=== PATIENT | male | born 1970 | race Caucasian/White ===

== ENCOUNTER 2020-10-06 19:53 | Emergency (ER) | payer BC, SELFPAY ==
[2020-10-06 19:54] VITALS: BP 137/82; PULSE 105; RESP 18; TEMP 36.8; O2SAT 100
[2020-10-06 20:03] VITALS: BP 137/82; PULSE 100; RESP 18; TEMP 36.8; O2SAT 100
--- NOTE | 2020-10-06 20:06 | PC.NURSE ---
Pt presents to ED with complaint of persistent emesis after choking on a spoonful of rice. Pt states he feels like the food became lodged at the top of his esophagus and states when he drink anything it comes back up as if it is blocked. Breathing noted to be even and unlabored with O2 saturation of 100% on room air. Pt able to speak in full sentences without difficulty. Pt noted with persistent cough and heaving. Pt alert and oriented x4. Nausea and emesis frequency has decreased since arrival. Girlfriend it present at bedside. Vitals are stable and pt in no obvious distress. Call button and personal items within reach. Pt advised to press call button for assistance.
[2020-10-06] MEDS: NITROGLYCERIN SL 0.4 MG TABLET SUBLINGUAL (20:47)
[2020-10-06] MEDS: SODIUM CHLORIDE 0.9% IV 1,000 ML 999 ML IV CONT (20:47)
--- NOTE | 2020-10-06 20:54 | ED.GENADULT ---
HPI - General Adult General Chief complaint: Nausea/Vomiting/Diarrhea Stated complaint: food stuck in throat Time Seen by Provider: 10/06/20 20:09 History of Present Illness HPI narrative: Patient 49-year-old gentleman who presents the emergency department with chief complaint of esophageal food impaction. Patient reports that he was eating Amharic food and had a big diet bite of rice as he swallowed it got stuck in his esophagus. The patient reports has been unable to swallow since then and unable to swallow his own secretions. Patient reports as the secretions build up he then has to spit up with his oral secretions. The patient reports he had an episode occurred like this before in the past but he was able to clear the impaction. Related Data Allergies Allergy/AdvReac Type Severity Reaction Status Date / Time No Known Allergies Allergy Unverified 06/09/20 10:59 Review of Systems Review of Systems: Narrative: A 10 system review of systems was completed on the patient and is negative except for what is stated in the HPI. Nursing and ancillary documentation was reviewed. [facility] Past Medical History Medical History Chicken pox Chills Flatulence Headaches, cluster Stomach pain Family History Family History Father , 70 Lorena Gehrig disease Mother No problems noted. Social History Social History Social History: patient drinks 1 32 ounce soda per day Smoking status: Never smoker Alcohol intake: never Substance use: never Substance use type: does not use Additional occupation/education comments: [employer] Gender identity (if verbalized by the patient): Male Spiritual care concerns: No Exam Narrative: Exam Narrative: GENERAL: Well-appearing, well-nourished, and in no acute distress. HEAD: Normocephalic, atraumatic. EYES: PERRLA and EOMI. ENT: Nares clear, no rhinorrhea or epistaxis. Mucous membranes moist. NECK: Supple. CHEST: Clear to auscultation. No respiratory distress. HEART: Regular rate and rhythm. No murmur heard. Normal peripheral pulses. ABDOMEN: Soft, nontender, nondistended, normal active bowel sounds. EXTREMITIES: Normal range of motion. No edema. SKIN: Warm, dry, no rash. NEURO: No focal deficits. Alert and oriented x3. PSYCH: Normal mood and affect. Course Vital Signs Vital signs: Vital Signs Temperature 36.8 C 10/06/20 19:54 Pulse Rate 105 H 10/06/20 19:54 Respiratory Rate 18 10/06/20 19:54 Blood Pressure 137/82 10/06/20 19:54 Pulse Oximetry 100 10/06/20 19:54 Temperature 36.8 C 10/06/20 20:03 Pulse Rate 100 10/06/20 20:03 Respiratory Rate 18 10/06/20 20:03 Blood Pressure 137/82 10/06/20 20:03 Pulse Oximetry 100 10/06/20 20:03 Medical Decision Making Vital Signs Vital Signs: Vital Signs Temperature 36.8 C 10/06/20 19:54 Pulse Rate 105 H 10/06/20 19:54 Respiratory Rate 18 10/06/20 19:54 Blood Pressure 137/82 10/06/20 19:54 Pulse Oximetry 100 10/06/20 19:54 Temperature 36.8 C 10/06/20 20:03 Pulse Rate 100 10/06/20 20:03 Respiratory Rate 18 10/06/20 20:03 Blood Pressure 137/82 10/06/20 20:03 Pulse Oximetry 100 10/06/20 20:03 Lab Data Result diagrams: 10/06/20 20:52 10/06/20 20:52 Labs: Lab Results 10/06/20 10/06/20 10/06/20 Range/Units 20:52 20:52 21:14 WBC 8.9 (4.5-10.0) K/mm3 RBC 4.99 (4.6-6.20) M/mm3 Hgb 15.1 (14.0-18.0) g/dL Hct 43.2 (42.0-52.0) % MCV 86.6 (80-100) fl MCH 30.3 (26-34) pg MCHC 35.0 (32-36) g/dl RDW 12.7 (11.5-14.5) % Plt Count 234 (150-375) k/mm3 MPV 10.0 (7.4-10.4) fl Immature Gran % (Auto) 0.2 (0-0.5) % Neut % (Auto) 65.9 (45.5-73.1) % Lymp
[2020-10-06 20:57] LABS: Basophils Absolute Auto 0.1 K/mm3 (0.0-0.1); Basophils Percent Auto 0.7 % (0.2-1.2); Eosinophils Absolute Auto 0.2 K/mm3 (0-0.3); Hematocrit 43.2 % (42.0-52.0); Hemoglobin 15.1 g/dL (14.0-18.0); Immature Granulocyte Absolute 0.02 K/mm3 (0.00-0.031); Immature Granulocyte Percent A 0.2 % (0-0.5); Lymphocytes Absolute Auto 1.93 K/mm3 (0.9-3.2); Lymphocytes Percent Auto 21.7 % (18.3-44.2); Mean Corpuscular Hemoglobin 30.3 pg (26-34); Mean Corpuscular Volume 86.6 fl (80-100); Monocytes Absolute Auto 0.9 K/mm3 (0.1-0.6); Monocytes Percent Auto 9.5 % (2.6-8.5); Neutrophils Absolute Auto 5.9 K/mm3 (1.3-6.7); Neutrophils Percent Auto 65.9 % (45.5-73.1); Platelet Count Result 234 k/mm3 (150-375); Red Blood Count 4.99 M/mm3 (4.6-6.20); Red Cell Distribution Width 12.7 % (11.5-14.5); White Blood Count 8.9 K/mm3 (4.5-10.0)
[2020-10-06 21:07] LABS: Alanine Aminotransferase 25 U/L (4-50); Albumin Level 4.5 g/dL (3.5-5.1); Alkaline Phosphatase 77 U/L (38-126); Anion Gap 11 mmol/L (8-16); Aspartate Amino Transferase 29 U/L (17-59); Bilirubin,Total 0.6 mg/dL (0.2-1.3); Blood Urea Nitrogen 19 mg/dL (9-20); Calcium 9.1 mg/dL (8.4-10.2); Carbon Dioxide 19 mmol/L (22-30); Chloride 108 mmol/L (98-107); Estimated CRCL calculation 64 ml/min; Estimated Glomerular Filt Rate 54; Glucose 129 mg/dL (75-110); Potassium 3.5 mmol/L (3.4-5.0); Sodium 138 mmol/L (137-145)
[2020-10-06] MEDS: GLUCAGON FOR INJ 1 MG VIAL 2 MG IV PUSH (21:16)
--- NOTE | 2020-10-06 21:18 | PC.NURSE ---
Pt states he feels better since medication administration and now rates discomfort 2/10 at this time. Pt remains alert and oriented x4 and in no obvious distress. Family member remains at bedside. Vitals are stable and pt advised to press call button for assistance.
[2020-10-06 21:22] LABS: Glucose Point of Care 122 (65-105)
--- NOTE | 2020-10-06 22:01 | PC.NURSE ---
EDMD at bedside to update pt and family on poc. Pt states he feels better and denies pain and discomfort. Call button and personal items within reach. Pt advised to press call button for assistance.
[2020-10-06 22:12] VITALS: BP 111/67; PULSE 57; RESP 18; TEMP 36.8; O2SAT 97
--- NOTE | 2020-10-20 15:41 | PC.NURSE ---
LATE ENTRY This note is being entered to document information to the patient's record. The following information was omitted on [10/06/20], by [Annette Shell]. Ns stopped at 2100
== END 2020-10-06 22:15 | disposition home or self-care (01) ==
PROVIDERS: Emergency Provider Emergency Medicine; PCP Emergency Medicine
DX: T18.128A Food in esophagus causing other injury, initial encounter (principal)
CPT/HCPCS: 36415; 80053; 82948; 85025; 96374; 99284; A9270; J1610; J7030

== ENCOUNTER → 2020-10-28 01:41 | Outpatient (CLI) | payer BC, SELFPAY ==
[2020-10-29 14:53] LABS: SARS-CoV-2 RNA PCR Negative
== END ==
PROVIDERS: PCP Emergency Medicine; Visit Provider Internal Medicine Gastroenterology
DX: Z01.812 Encounter for preprocedural laboratory examination (principal); Z20.822 Contact with and (suspected) exposure to COVID-19
CPT/HCPCS: C9803; U0003; U0005

== ENCOUNTER 2020-10-31 01:53 | Day surgery (SDC) | payer BC, SELFPAY ==
[2020-07-07 13:25] VITALS: BMI 28.7
[2020-10-26 12:25] VITALS: BMI 28.7
[2020-10-31 08:12] VITALS: BP 113/73; PULSE 52; RESP 18; TEMP 36.2; O2SAT 98; BMI 26.9
[2020-10-31] MEDS: LACTATED RINGERS 1,000 ML 150 ML IV CONT (08:24)
--- NOTE | 2020-10-31 08:33 | WPDANESEPPF ---
Anes - Initial Pre Proc Eval Procedure: Operation Date: 10/31/20 09:15 Proposed Procedures p Esophagogastroduodenoscopy & Colonoscopy - Peter Wan MD Date/Time: 10/31/20 08:33 Surgeon: Peter Wan MD Pre Op Diagnosis: Positive Cologard, Dysphagia Patient Data Age: 50 Gender: M Height: 1.83 m Weight: 90.1 kg Last Vital Signs Temp 36.2 C L 10/31/20 08:12 Pulse 52 L 10/31/20 08:12 Resp 18 10/31/20 08:12 BP 113/73 10/31/20 08:12 Pulse Ox 98 10/31/20 08:12 Allergies Allergy/AdvReac Type Severity Reaction Status Date / Time No Known Allergies Allergy Verified 10/31/20 08:10 Home Medications Medication Instructions Recorded Confirmed Type finasteride 5 mg tablet See Rx Instructions PO DAILY #45 09/04/20 10/31/20 Rx tablet finasteride 2.5 mg PO DAILY 10/26/20 10/31/20 History Patient hx anesthesia problems: none Family hx anesthesia problems: none PMFSH Past Medical History Medical History Chicken pox Chills Flatulence Headaches, cluster Stomach pain Family History Family History Father , 70 Lorena Gehrig disease Mother No problems noted. Social History Social History Social History: patient drinks 1 32 ounce soda per day Smoking status: Never smoker Alcohol intake: current Alcohol use details: 2 PER MONTH Substance use: never Substance use type: does not use Living arrangements: with family Additional occupation/education comments: [employer] Gender identity (if verbalized by the patient): Male Spiritual care concerns: No Anes - Eval Final PreProcedure Day of Procedure 10/31/20 08:33 Patient weight: overweight Heart: regular rate and rhythm Lungs: clear to auscultation and normal air movement Airway: Mallampati scale class II Neurological: alert and oriented Last oral intake: >/= 8 hours ASA classification: II Emergent: no Anesthetic plan: proceed Anesthesia type and monitoring: general GIVS and standard monitoring Informed Consent: The patient's anesthetic plan and its attendant risks and benefits were discussed with the patient/family/POA. Questions were solicited and answers provided to the satisfaction of the patient/family/POA.
--- NOTE | 2020-10-31 08:54 | PM.HPGS ---
History of Present Illness History of Present Illness Consent: Risks, benefits, and alternatives have been discussed and questions answered. Patient agrees to proceed with procedure. Chief complaint: Positive Cologard, Dysphagia Narrative: Turner Orr is a 50 year old male had one episode of food bolus after eating faroese rice treated medically and did not require egd, also had + cologuard (never had scopes) Review of Systems Constitutional: Constitutional: Denies headache(s) and Denies weakness Eyes: Eyes: Denies blurry vision ENT: Reports Normal hearing present, Denies headache(s) and Denies neck pain Cardiovascular: Cardiovascular: Denies chest pain and Denies dyspnea Respiratory: Respiratory: Denies dyspnea Gastrointestinal: Gastrointestinal: Reports no additional gastrointestinal complaints Genitourinary: Genitourinary: Denies dysuria Musculoskeletal: Musculoskeletal: Denies neck pain Integumentary/Breasts: Skin/Breast: Denies dry skin Neurologic: Reports Normal hearing present, Denies headache(s) and Denies weakness Psychiatric: Psychiatric: Denies anxiety Endocrine: Endocrine: Denies change in body appearance Hematologic/Lymphatic: Hematologic/Lymphatic: Denies easy bleeding Allergic/Immunologic: Allergic/Immunologic: Denies urticaria PMFSH Past Medical History Medical History (Updated 10/31/20 @ 08:55 by Peter Wan MD) Chicken pox Chills Flatulence Food impaction of esophagus Headaches, cluster Positive colorectal cancer screening using Cologuard test Stomach pain Family History Family History Father , 70 Lorena Gehrig disease Mother No problems noted. Social History Social History Social History: patient drinks 1 32 ounce soda per day Smoking status: Never smoker Alcohol intake: current Alcohol use details: 2 PER MONTH Substance use: never Substance use type: does not use Living arrangements: with family Additional occupation/education comments: [employer] Gender identity (if verbalized by the patient): Male Spiritual care concerns: No Meds Home Medications and Allergies Home Medications Medication Instructions Recorded Confirmed Type finasteride 5 mg tablet See Rx Instructions PO DAILY #45 09/04/20 10/31/20 Rx tablet finasteride 2.5 mg PO DAILY 10/26/20 10/31/20 History Allergies Allergy/AdvReac Type Severity Reaction Status Date / Time No Known Allergies Allergy Verified 10/31/20 08:10 Vital Signs Vital Signs - 24 hr 10/31/20 08:12 Temperature 97.1 F L Pulse Rate 52 L Respiratory Rate 18 Blood Pressure 113/73 Pulse Oximetry 98 Exam Const: General: comfortable and no acute distress HENMT: General nose exam: Normal nares present Eyes: General: appearance normal, both eyes and all related structures Neck: Neck: no JVD Resp: Auscultation: clear to auscultation bilaterally Cardio: Rate: regular rate Rhythm: regular rhythm GI: Inspection: non-distended GI Palp: Yes Soft to palpation Skin: General skin exam: normal color Neuro: General: gait normal Speech: normal speech Extrem: General: normal to inspection Psych: Mental Status: mental status grossly normal Assessment and Plan Assessment and plan (1) Food impaction of esophagus: Code(s): T18.128A - Food in esophagus causing other injury, initial encounter Status: Acute Assessment and Plan: egd with bx (2) Positive colorectal cancer screening using Cologuard test: Code(s): R19.5 - Other fecal abnormalities Status: Acute Assessment and Plan: colonoscopy
--- NOTE | 2020-10-31 09:11 | SUR.OPER ---
EGD ENDED 901 AND COLONOSCOPY STARTED
[2020-10-31 09:18] VITALS: BP 96/62; PULSE 86; RESP 16; O2SAT 97
[2020-10-31 09:28] VITALS: BP 91/44; PULSE 74; RESP 22; O2SAT 95
[2020-10-31 09:38] VITALS: BP 107/57; PULSE 78; RESP 17; O2SAT 99
== END 2020-10-31 10:16 | disposition home or self-care (01) ==
PROVIDERS: PCP Emergency Medicine; Visit Provider Internal Medicine Gastroenterology
PROC: 0DJ08ZZ Inspection of Upper Intestinal Tract, Via Natural or Artificial Opening Endoscopic (ICD-10-PCS; CPT 43235; principal; 2020-10-31 09:15)
DX: R19.5 Other fecal abnormalities (principal); D12.3 Benign neoplasm of transverse colon; K57.30 Diverticulosis of large intestine without perforation or abscess without bleeding; K64.8 Other hemorrhoids; K29.50 Unspecified chronic gastritis without bleeding; K20.80 Other esophagitis without bleeding; E66.3 Overweight; Z68.26 Body mass index [BMI] 26.0-26.9, adult
CPT/HCPCS: 45385; 43239; 88305; J7120

== ENCOUNTER 2020-12-11 12:02 | Outpatient (CLI) | payer BC, SELFPAY ==
[2020-12-11 12:49] LABS: Chloride 106 mmol/L (98-107)
[2020-12-11 12:52] LABS: Hemoglobin A1C 5.3 % (<5.7)
[2020-12-11 12:59] LABS: Alanine Aminotransferase 18 U/L (4-50); Albumin Level 4.1 g/dL (3.5-5.1); Alkaline Phosphatase 66 U/L (38-126); Anion Gap 6 mmol/L (8-16); Aspartate Amino Transferase 26 U/L (17-59); Bilirubin,Total 0.6 mg/dL (0.2-1.3); Blood Urea Nitrogen 14 mg/dL (9-20); Calcium 9.2 mg/dL (8.4-10.2); Carbon Dioxide 27 mmol/L (22-30); Estimated Glomerular Filt Rate 38; Glucose 97 mg/dL (75-110); Potassium 4.4 mmol/L (3.4-5.0); Sodium 139 mmol/L (137-145)
== END 2020-12-11 12:03 | disposition home or self-care (01) ==
LOC: ANHLAB 12:05
PROVIDERS: PCP Emergency Medicine; Visit Provider Emergency Medicine
DX: E78.00 Pure hypercholesterolemia, unspecified (principal); R73.09 Other abnormal glucose
CPT/HCPCS: 36415; 80053; 83036

== ENCOUNTER 2021-02-19 09:41 | Outpatient (CLI) | payer BC, SELFPAY ==
[2021-02-19 10:14] LABS: Albumin Level 4.3 g/dL (3.5-5.1); Anion Gap 9 mmol/L (8-16); Blood Urea Nitrogen 14 mg/dL (9-20); Calcium 9.2 mg/dL (8.4-10.2); Carbon Dioxide 25 mmol/L (22-30); Chloride 102 mmol/L (98-107); Estimated Glomerular Filt Rate 59; Glucose 110 mg/dL (65-110); Potassium 3.8 mmol/L (3.4-5.0); Sodium 136 mmol/L (137-145)
[2021-02-19 12:17] LABS: Collection Time Urine 24 HOURS
[2021-02-19 12:24] LABS: Creatinine Urine 167.3 mg/dL; Patient Weight 200 Lbs
[2021-02-19 13:05] LABS: Total Volume 24 Hour Urine 1400 ml
[2021-02-19 13:06] LABS: Creatinine Clearance Urine 617.7 ml/min (75-125)
== END 2021-02-19 09:42 | disposition home or self-care (01) ==
PROVIDERS: PCP Emergency Medicine; Visit Provider Internal Medicine Nephrology
DX: R79.89 Other specified abnormal findings of blood chemistry (principal)
CPT/HCPCS: 36415; 80069; 82575

== ENCOUNTER 2021-02-27 10:12 | Outpatient (CLI) | payer BC, SELFPAY ==
--- NOTE | ~2021-02-27 | US_ITS ---
EXAMINATION: US renal BI DATE: 02/27/2021 10:47 INDICATION: Elevated creatinine TECHNIQUE: Multiple grayscale and Doppler ultrasound images of the kidneys were obtained. COMPARISON: None. FINDINGS: The right kidney measures 11.5 x 5.2 x 6.5 cm. The left kidney measures 10.6 x 6.7 x 5.5 cm . The kidneys demonstrate normal parenchymal echogenicity. There is no hydronephrosis. The bladder is normal. IMPRESSION: 1. Normal kidneys without hydronephrosis. Reviewed, dictated and finalized at location B.
== END 2021-02-27 10:13 | disposition home or self-care (01) ==
LOC: ANHIMG 10:17
PROVIDERS: PCP Emergency Medicine; Visit Provider Internal Medicine Nephrology
DX: R79.89 Other specified abnormal findings of blood chemistry (principal)
CPT/HCPCS: 76775

== ENCOUNTER 2022-06-21 15:05 | Emergency (ER) | payer BC, SELFPAY ==
[2022-06-21 15:10] VITALS: BP 138/91; PULSE 65; RESP 20; TEMP 36.6; O2SAT 98
--- NOTE | 2022-06-21 15:29 | ED.URI ---
HPI - URI/Sore Throat General Chief Complaint: Upper Respiratory Infection Stated Complaint: Sore Throat, Fever, Cough Time Seen by Provider: 06/21/22 15:29 Source: patient Mode of arrival: ambulatory Limitations: no limitations History of Present Illness HPI Narrative: 51-year-old male presents with complaint flu-like symptoms over a week. Reports that he now has sinus congestion that will not go away. Taking [id number] medications without relief. Denies nausea vomiting diarrhea. reports that he initially had a fever for 2-3 days but that has resolved. Continues to have cough, pain to right lung when coughing. Denies shortness of breath or chest pain. All systems reviewed and negative except as noted above. Related Data Allergies Allergy/AdvReac Type Severity Reaction Status Date / Time No Known Allergies Allergy Verified 06/21/22 15:06 Review of Systems Review of Systems: CONSTITUTIONAL: Denies fever, chills, or sweats. Reports fatigue. EYES: Denies visual changes, redness, or discharge. ENT: Reports rhinorrhea, congestion, sinus congestion. Denies sore throat, or otalgia. CARDIOVASCULAR: Denies chest pain, palpitations, or edema. RESPIRATORY: reports cough. Denies dyspnea. GASTROINTESTINAL: Denies abdominal pain, nausea, vomiting, or diarrhea. GENITOURINARY: Denies dysuria or hematuria. SKIN: Denies rash or itching. MUSCULOSKELETAL: Denies back pain, joint pain, or myalgia. NEUROLOGIC: Denies headache, numbness, or weakness. PSYCHIATRIC: Denies anxiety or depression. All other systems reviewed are negative, except as documented in HPI. [facility] Past Medical History Medical History Adenomatous colon polyp Chicken pox Chills Eosinophilic esophagitis Flatulence Food impaction of esophagus GERD (gastroesophageal reflux disease) Headaches, cluster Positive colorectal cancer screening using Cologuard test Stomach pain Family History Family History Father , 70 Lorena Gehrig disease Mother No problems noted. Social History Social History Social History: patient drinks 1 32 ounce soda per day Smoking status: Never smoker Alcohol intake: current Alcohol use details: 2 PER MONTH Substance use: never Substance use type: does not use Additional occupation/education comments: [employer] Gender identity (if verbalized by the patient): Male Spiritual care concerns: No Comments At time of signature, agree with nursing past medical, surgical, social and family history. There is no relevant family history pertinent to the presenting complaint. Exam Narrative: GENERAL: This is a well-nourished, well-developed patient, in no apparent distress. HEAD: normocephalic, atraumatic. EYES: PERRL. Sclera clear/white. Vision is grossly intact. EARS: External ears normal, auditory canals clear and without drainage, fluid bilateral TM without perforation. NOSE: External nose normal with Thick drainage from nose, moderate congestion, bilateral maxillary sinus tenderness. Erythema and swelling to both nares. THROAT: Mucous membranes moist, Erythema with postnasal drainage. NECK: Neck supple, non-tender without lymphadenopathy, masses or thyromegaly. CARDIOVASCULAR: Regular rate and rhythm without murmurs, gallops, or rubs. RESPIRATORY: Clear to auscultation. Breath sounds equal bilaterally. No wheezes, rales, or rhonchi. SKIN: warm, Dry, intact with no suspicious lesions or rash, good texture and turgor. NEURO: awake, alert, and oriented to person, place and time. There were no obvious focal neurologic abnormalities. EXTREMITIES: No joint tenderness, effusion, or edema noted. Course Course Level of Care: Express Care Visit Vital Signs Vital signs: Vital Signs Temperature 36.6 C 06/21/22 15:
== END 2022-06-21 15:43 | disposition home or self-care (01) ==
PROVIDERS: Emergency Provider Nurse Practitioner Family; PCP Emergency Medicine
DX: J01.90 Acute sinusitis, unspecified (principal); K21.9 Gastro-esophageal reflux disease without esophagitis
CPT/HCPCS: 99213; G0463

== ENCOUNTER 2022-07-18 17:46 | Emergency (ER) | payer OTHER, SELFPAY ==
[2022-07-18 18:08] VITALS: BP 130/91; PULSE 60; RESP 18; TEMP 36.4; O2SAT 100
--- NOTE | 2022-07-18 18:50 | ED.URI ---
HPI - URI/Sore Throat General Chief Complaint: Upper Respiratory Infection Stated Complaint: Ear/Nose/ Throat Time Seen by Provider: 07/18/22 18:47 Source: patient and RN notes reviewed Mode of arrival: ambulatory Limitations: no limitations History of Present Illness HPI Narrative: 51-year-old male presents with concern for ongoing sinus infection despite antibiotics. Reports at the end of May he was treated for a sinus infection with amoxicillin and steroids. Reports symptoms started to improve but did not resolve and they have gradually worsened. He reports symptoms have worsened over the last week. MD elicited complaint: nasal congestion and sinus pain Related Data Allergies Allergy/AdvReac Type Severity Reaction Status Date / Time No Known Allergies Allergy Verified 07/18/22 18:07 Review of Systems Review of Systems: CONSTITUTIONAL: Denies malaise, chills, sweats, or fever. EYES: Denies visual changes, redness, or discharge. ENT: Reports rhinorrhea, congestion, sinus pain. Denies otalgia and sore throat. CARDIOVASCULAR: Denies chest pain, palpitations, or edema. RESPIRATORY: Denies cough. Denies dyspnea. GASTROINTESTINAL: Denies abdominal pain, nausea, vomiting, diarrhea SKIN: Denies rash or itching. MUSCULOSKELETAL: Denies myalgia. NEUROLOGIC: Reports headache. All systems reviewed & are unremarkable except as noted in HPI and below PMFSH Past Medical History Medical History Adenomatous colon polyp Chicken pox Chills Eosinophilic esophagitis Flatulence Food impaction of esophagus GERD (gastroesophageal reflux disease) Headaches, cluster Positive colorectal cancer screening using Cologuard test Stomach pain Family History Family History Father , 70 Lorena Gehrig disease Mother No problems noted. Social History Social History Social History: patient drinks 1 32 ounce soda per day Smoking status: Never smoker Alcohol intake: current Alcohol use details: 2 PER MONTH Substance use: never Substance use type: does not use Living arrangements: with family Occupation/Education: occupation Additional occupation/education comments: [employer] Gender identity (if verbalized by the patient): Male Spiritual care concerns: No Comments At time of signature, agree with nursing past medical, surgical, social and family history. There is no relevant family history pertinent to the presenting complaint Exam Narrative: GENERAL: Well-appearing, well-nourished, and in no acute distress. HEAD: Normocephalic EYES: PERRLA, conjunctivae clear ENT: Nares clear, turbinates edematous and erythematous, sinus tenderness. Mucous membranes moist. TM pearly lockett with dull light reflex bilaterally; no tragal tenderness. Oropharynx not erythematous without lesions. Tonsils not enlarged and without exudate, no drooling, no hoarseness, no trismus, uvula midline. NECK: Supple. No lymphadenopathy CHEST: Clear to auscultation, breath sounds equal. No wheezing, rhonchi, rales, or stridor. No respiratory distress, speaks in full sentences. HEART: Regular rate and rhythm. No murmur heard. SKIN: Warm, dry, no rash. NEURO: Alert and oriented x3. PSYCH: Normal mood and affect Course Course Emergency Course: Patient is aware of diagnosis, understands and agrees to treatment plan. Anticipatory guidance given. Patient agrees to follow-up as directed and is aware of reasons to seek care at the emergency department. Portions of this record may have been created with voice recognition software Level of Care: Express Care Visit Vital Signs Vital signs: Vital Signs Temperature 97.6 F 07/18/22 18:08 Pulse Rate 60 07/18/22 18:08 Respiratory Rate 18 07/18/22 18:08 Blood Pressure 130/91 H 07/18/22 18:08 Pulse
== END 2022-07-18 19:00 | disposition home or self-care (01) ==
PROVIDERS: Emergency Provider Nurse Practitioner; PCP Emergency Medicine
DX: J01.90 Acute sinusitis, unspecified (principal); K21.9 Gastro-esophageal reflux disease without esophagitis
CPT/HCPCS: 99213; G0463

== ENCOUNTER 2024-10-28 08:22 | Outpatient (CLI) | payer OTHER, SELFPAY ==
--- NOTE | ~2024-10-28 | XR_ITS ---
3 VIEWS LUMBAR SPINE Ordering provider: Parker Márquez MD History: . M54.9 - Dorsalgia, unspecified . Comparison: None. FINDINGS: VERTEBRAL BODIES:Dextroscoliosis. No visible fracture or subluxation. Degenerative changes of the sp ine. DISK SPACES: Slight narrowing of the disc L3-L4 and L4-L5. SOFT TISSUES: Normal. IMPRESSION: No acute osseous abnormality lumbar spine. Multilevel degenerative disc disease. Dextroscoliosis. Reviewed, dictated and finalized at location A.
--- NOTE | ~2024-10-28 | CT_ITS ---
Non-contrast CT scan of the Abdomen and Pelvis Clinical indication: Abdominal pain Technique: 2.5 mm axial scans were obtained through the abdomen and pelvis without intravenous or or al contrast. Dose reduction technique was used on this scan by utilizing automated exposure control a nd iterative reconstruction technique. The dose-length product (DLP) was 894.37 mGy-cm. Findings: Images through the lung bases reveal no abnormalities. There is no evidence of renal or ureteral calculi. The kidneys and the ureters are nondilated. The liver, spleen, pancreas, gallbladder, and adrenals appear normal. There is no aortic aneurysm. There is no evidence of bowel obstruction. Images through the pelvis were performed. There is no evidence of ascites or lymphadenopathy. Urinary bladder unremarkable. No pelvic mass seen. Small fat-containing left inguinal hernia noted. There are bilateral L5 pars interarticularis defects, with minimal grade 1 anterolisthesis of L5 over S1. Impression: No acute abnormality. Small fat-containing left inguinal hernia. Reviewed, dictated and finalized at [facility]. Impression: No acute abnormality. Small fat-containing left inguinal hernia.
== END 2024-10-28 08:23 | disposition home or self-care (01) ==
PROVIDERS: PCP Emergency Medicine; Visit Provider Emergency Medicine
DX: M51.369 Other intervertebral disc degeneration, lumbar region without mention of lumbar back pain or lower extremity pain (principal); M41.86 Other forms of scoliosis, lumbar region
CPT/HCPCS: 72100; 74176